=== PATIENT | male | born 1970 | race African-American/Black ===

== ENCOUNTER 2019-09-05 17:55 | Observation (INO) ==
[2019-09-05] MEDS ORDERED: KETOROLAC 30 MG/1 ML VIAL IV STA (18:38)
[2019-09-05 19:03] LABS: Basophils # 0.1 10*3/uL (0.0-0.2); Basophils % 0.9 % (0.0-0.8); Eosinophils # 0.2 10*3/uL (0.0-0.87); Eosinophils % 3.1 % (0.00-10.9); Hematocrit 36.3 VOL% (42.0-52.0); Hemoglobin 11.7 GM/DL (14.0-18.0); Immature Granulocytes % 0.4 %; Immature Granulocytes Absolute 0.02 #; Lymphocytes % 36.5 % (21.2-54.2); Mean Corpuscular HGB Conc 32.2 GM/DL (32-36); Mean Corpuscular Volume 89.2 FL (87-102); Monocytes % 8.3 % (1.7-12.7); Neutrophils % 50.8 % (38.7-73.9); Platelet Count 345 T/CUMM (130-400); Red Blood Count 4.07 MC/CUMM (3.8-5.5); Red Cell Distribution Width 12.1 % (9.3-17.3); White Blood Count 5.4 T/CUMM (4-12)
[2019-09-05 19:17] LABS: Calcium 8.6 MG/DL (8.5-10.1); Osmolality,Calculated 279.8 MOS/KG (273-304)
[2019-09-05] MEDS ORDERED: HYDROmorphone 2 MG/1 ML VIAL IV PRN (21:15)
[2019-09-05] MEDS ORDERED: ONDANSETRON 4 MG/2 ML VIAL IV PRN (21:15)
[2019-09-05] MEDS ORDERED: ACETAMINOPHEN 325 MG TABLET PO PRN (21:15)
[2019-09-05] MEDS ORDERED: DEXTROSE 50% 25 GM/50 ML SYRINGE IV PRN (21:15)
[2019-09-05] MEDS ORDERED: GLUCAGON 1 MG VIAL IM PRN (21:15)
[2019-09-05] MEDS ORDERED: KETOROLAC 15 MG/1 ML VIAL IV PRN (21:15)
[2019-09-05] MEDS: SODIUM CHLORIDE 0.9% 1,000 ML IV SCH (23:59)
[2019-09-06] MEDS: INSULIN REGULAR 100 UNIT/ML SUBCUT SCH ×3 (00:28→13:04)
[2019-09-06] MEDS ORDERED: VANCOMYCIN INJ 2,500 MG in SODIUM CHLORIDE 0.9% 500 ML IV ONE (02:00)
[2019-09-06] MEDS: PIPERACILLIN/TAZOBACTAM 3,375 MG in SODIUM CHLORIDE 0.9% 100 ML IV SCH ×2 (05:09→05:39)
[2019-09-06] MEDS ORDERED: LIDOCAINE 1%/EPI INJ 20 ML VIAL ONE (07:27)
[2019-09-06] MEDS ORDERED: BUPIVACAINE MPF 0.25% 30 ML VIAL ONE (07:28)
[2019-09-06] MEDS ORDERED: propofoL 200 MG/20 ML VIAL IV ONE (08:13)
[2019-09-06] MEDS ORDERED: LIDOCAINE 2% 5 ML VIAL ONE (08:13)
[2019-09-06] MEDS ORDERED: SEVOFLURANE 1 UNIT/15 MINUTE INH ONE (08:13)
[2019-09-06] MEDS ORDERED: fentaNYL 100 MCG/2 ML VIAL ONE (08:14)
[2019-09-06] MEDS ORDERED: ONDANSETRON 4 MG/2 ML VIAL IV PRN (08:14)
[2019-09-06] MEDS ORDERED: SUCCINYLCHOLINE 200 MG/10 ML VIAL ONE (08:14)
[2019-09-06] MEDS ORDERED: ONDANSETRON 4 MG/2 ML VIAL ONE (08:14)
[2019-09-06] MEDS ORDERED: ROCURONIUM 100 MG/10 ML VIAL IV ONE (08:14)
[2019-09-06] MEDS ORDERED: HYDROmorphone 2 MG/1 ML VIAL IV PRN (08:14)
[2019-09-06] MEDS ORDERED: MIDAZOLAM 2 MG/2 ML VIAL ONE (08:14)
[2019-09-06] MEDS ORDERED: PHENYLEPHRINE 1 MG/10 ML SYRINGE IV ONE (08:14)
[2019-09-06] MEDS ORDERED: PANTOPRAZOLE 40 MG TABLET PO SCH (09:00)
[2019-09-06 13:01] VITALS: BP 101/73
[2019-09-06] MEDS: SODIUM CHLORIDE 0.9% 1,000 ML IV SCH (13:04)
[2019-09-06] MEDS ORDERED: VANCOMYCIN INJ 1,750 MG in SODIUM CHLORIDE 0.9% 500 ML IV SCH (15:00)
== END 2019-09-06 12:45 ==
LOC: EDBD → EDUNIT# → N.EDINP 17:55 → N.ED 17:55 → N.3W 20:52
PROVIDERS: ADMIT Student in an Organized Health Care Education/Training Program; ATTEND Student in an Organized Health Care Education/Training Program